=== PATIENT | female | born 1995 | race African-American/Black ===

== ENCOUNTER 2019-06-25 11:37 | Emergency (ER) | payer OTHER, SELFPAY ==
[2019-06-25 11:45] VITALS: BP 131/88; PULSE 80; RESP 18; TEMP 37.4; O2SAT 100
--- NOTE | 2019-06-25 11:45 | ED.DENTAL ---
HPI - Dental/Oral General Chief complaint: Dental/Oral Stated complaint: tooth pain History of Present Illness HPI Narrative: This is a 24-year-old female that comes in with left lower jaw pain from her tooth as well as jaw swelling. Patient states that she is already seen somebody in urgent care a week or so ago that was and was only given ibuprofen patient says that her dentist is not open due to couvid 19. Patient states that she has a 4-month-old baby so she has not been able to take anything too strong says that she cannot take it patient currently tearful due to pain. Patient last time she took something was at 4 AM which was Tylenol and ibuprofen at the same time Related Data Allergies Allergy/AdvReac Type Severity Reaction Status Date / Time peanuts Allergy Unknown Swelling Uncoded 03/16/19 18:46 of Lip/Tongue/Throat seafood Allergy Unknown Swelling Uncoded 03/16/19 18:46 of Lip/Tongue/Throat Review of Systems Review of Systems: Narrative: CONSTITUTIONAL: Denies fever, chills, or sweats. EYES: Denies visual changes, redness, or discharge. ENT: Denies rhinorrhea, congestion, sore throat, or positive otalgia. Tooth pain CARDIOVASCULAR:Denies chest pain, palpitations, or edema. RESPIRATORY: Denies cough or dyspnea. GASTROINTESTINAL: Denies abdominal pain, nausea, vomiting, or diarrhea. GENITOURINARY: Denies dysuria or hematuria. SKIN:[Denies rash or itching. MUSCULOSKELETAL:Denies back pain, joint pain, or myalgia. NEUROLOGIC: Denies headache, numbness, or weakness. PSYCHIATRIC:Denies anxiety or depression PMFSH Social History Social History Smoking status: Never smoker Gender identity (if verbalized by the patient): Female Comments At time as signature, I have reviewed and agree with nursing past medical, social, surgical and family history. Please see nursing chart for further information. There is no relevant family history pertinent to the presenting complaint. Exam Narrative: Exam Narrative: GENERAL:Well-appearing, well-nourished, and in no acute distress. HEAD:Normocephalic, atraumatic. EYES: PERRLA and EOMI. ENT: Nares clear, no rhinorrhea or epistaxis. Mucous membranes moist. Jaw swelling lower left swelling gumline ear pain due to the jaw pain NECK: Supple. CHEST: Clear to auscultation. No respiratory distress. HEART: Regular rate and rhythm. No murmur heard. Normal peripheral pulses. ABDOMEN: Soft, nontender, nondistended, normal active bowel sounds. EXTREMITIES: Normal range of motion. No edema. SKIN: Warm, dry, no rash. NEURO: No focal deficits. Alert and oriented x3. Course Vital Signs Vital signs: Vital Signs Temperature 99.4 F 06/25/19 11:45 Pulse Rate 80 06/25/19 11:45 Respiratory Rate 18 06/25/19 11:45 Blood Pressure 131/88 06/25/19 11:45 Pulse Oximetry 100 06/25/19 11:45 Temperature 99.4 F 06/25/19 11:45 Pulse Rate 80 06/25/19 11:45 Respiratory Rate 18 06/25/19 11:45 Blood Pressure 131/88 06/25/19 11:45 Pulse Oximetry 100 06/25/19 11:45 MDM - Dental/Oral Differential Diagnosis Differential diagnosis: Likely gingival abscess, dental caries, toothache, dental abscess and fracture of tooth Discharge Plan Discharge Clinical Impression: Dental caries, Toothache, Dental abscess Patient Disposition: Home, Self-Care Condition: Stable Instructions: Antibiotic Form, Dental Abscess (ED), Acute Dental Trauma (ED), Mouth Care (ED) Additional Instructions: Antibiotic as directed Avoid temperature extremes May apply heat or ice to the face Gentle brushing and flossing Alternate tylenol and ibuprofen as needed for pain Follow-up with the dentist as soon as possible--see the list provided If your pharmacy is not able to mix the magic mouth wash I want you to mix 40 ml of benadryl 40 ml of Milk of Mag with the lidocaine shake it up and then you will draw 5 mls
[2019-06-25] MEDS: predniSONE 20 MG TABLET 40 MG PO (11:56)
== END 2019-06-25 12:10 | disposition home or self-care (01) ==
PROVIDERS: Emergency Provider Nurse Practitioner Family
DX: K02.9 Dental caries, unspecified (principal); K04.7 Periapical abscess without sinus; J45.909 Unspecified asthma, uncomplicated
CPT/HCPCS: 99213; G0463; J7512

== ENCOUNTER 2019-11-21 18:05 | Emergency (ER) | payer OTHER, SELFPAY ==
[2019-11-21 18:14] VITALS: BP 146/93; PULSE 83; RESP 20; TEMP 36.8; O2SAT 100
--- NOTE | 2019-11-21 18:33 | ED.ABDPAIN ---
HPI - Abdominal Pain General Chief Complaint: Urogenital-Female Stated Complaint: abd pain/cramps/rash on face Time Seen by Provider: 11/21/19 18:08 Source: patient Limitations: no limitations History of Present Illness HPI narrative: Patient presents for evaluation of abnormal uterine bleeding. Indicates she had a vaginal delivery in February 2019. She had a Nexplanon placed in her left upper extremity following the delivery, which is still in place. She resumed a pattern of normal menstruation in June of this year. She indicates she had a period starting on October 04 that lasted through the end of the month. On Wednesday of last week(four days ago), she began experiencing vaginal bleeding again. She has been going through approximately 4 pads per day. She states there are some blood clots present. She denies any fever, chills, nausea, vomiting, vaginal discharge, urinary symptoms. No history of abdominal surgeries. No EtOH use. OBGYN is Stephanie Mendoza in [facility]. She has some pelvic cramping that is consistent with menstrual cramps. In terms of her obstetric history, she is G1, P1. No additional complaints or concerns. Related Data Allergies Allergy/AdvReac Type Severity Reaction Status Date / Time peanuts Allergy Unknown Swelling Uncoded 03/16/19 18:46 of Lip/Tongue/Throat seafood Allergy Unknown Swelling Uncoded 03/16/19 18:46 of Lip/Tongue/Throat Review of Systems Review of Systems: Narrative: CONSTITUTIONAL: Denies fever, chills, or sweats. EYES: Denies visual changes, redness, or discharge. ENT: Denies rhinorrhea, congestion, sore throat, or otalgia. CARDIOVASCULAR: Denies chest pain, palpitations, or edema. RESPIRATORY: Denies cough or dyspnea. GASTROINTESTINAL: Denies nausea, vomiting, or diarrhea. Reports some pelvic cramping GENITOURINARY: Denies dysuria or hematuria. Reports vaginal bleeding SKIN: Denies rash or itching. MUSCULOSKELETAL: Denies back pain, joint pain, or myalgia. NEUROLOGIC: Denies headache, numbness, dizziness, or weakness. PSYCHIATRIC: Denies anxiety or depression. 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 HEAD: Normocephalic, atraumatic. EYES: PERRLA and EOMI. ENT: Nares clear, no rhinorrhea or epistaxis. Mucous membranes moist. Oropharynx without tonsillar hypertrophy exudate or other lesions. Bilateral TMs pearly [place] nonbulging NECK: Supple. No adenopathy or masses. No carotid bruits or JVD CHEST: Clear to auscultation. No respiratory distress. No wheezes rales or rhonchi HEART: Regular rate and rhythm. No murmur heard. Normal peripheral pulses. ABDOMEN: Soft, nondistended, normal active bowel sounds. Mild tenderness in LLQ Without rebound or guarding eXTREMITIES: Normal range of motion. No edema. SKIN: Warm, dry, no rash. NEURO: No focal deficits. Alert and oriented x3. PSYCH: Normal mood and affect. Course Course Emergency Course: This is a 24-year-old female that came to the [facility] care with complaints of abnormal uterine bleeding. Her urine is negative. She does have some protein in her urine and some blood as well. She does have a history of hypertension and preeclampsia. She looks extremely well on examination. She likely could benefit from ultrasound but this does not need to
== END 2019-11-21 18:58 | disposition home or self-care (01) ==
PROVIDERS: Emergency Provider Nurse Practitioner
DX: N93.9 Abnormal uterine and vaginal bleeding, unspecified (principal); R80.9 Proteinuria, unspecified; I10 Essential (primary) hypertension; F17.200 Nicotine dependence, unspecified, uncomplicated
CPT/HCPCS: 81003; 81025; 99213; G0463

== ENCOUNTER 2020-01-09 18:07 | Emergency (ER) | payer OTHER, SELFPAY ==
[2020-01-09 18:18] VITALS: BP 141/102; PULSE 89; RESP 20; TEMP 37.9; O2SAT 100
--- NOTE | 2020-01-09 18:32 | ED.URI ---
HPI - URI/Sore Throat General Chief Complaint: Upper Respiratory Infection Stated Complaint: upper respiratory infection Time Seen by Provider: 01/09/20 18:18 Source: patient and RN notes reviewed Mode of arrival: ambulatory Limitations: no limitations History of Present Illness HPI Narrative: Patient presents today complaining of sinus pressure, body aches, rhinorrhea, nasal congestion since yesterday. Denies sore throat, cough, fever, ear pain. She has been taking Tylenol and TheraFlu without relief. Daughter has a cold at home. No known COVID-19 exposure. MD elicited complaint: nasal congestion Related Data Home Medications Medication Instructions Recorded Confirmed epinephrine 0.3 mg SUBCUT 01/09/20 Allergies Allergy/AdvReac Type Severity Reaction Status Date / Time peanuts Allergy Unknown Swelling Uncoded 03/16/19 18:46 of Lip/Tongue/Throat seafood Allergy Unknown Swelling Uncoded 03/16/19 18:46 of Lip/Tongue/Throat Review of Systems Review of Systems: Narrative: CONSTITUTIONAL: Denies fever, chills, or sweats. + Body aches EYES: Denies visual changes, redness, or discharge. ENT: Denies sore throat, or otalgia. + Congestion, rhinorrhea, facial pressure CARDIOVASCULAR: Denies chest pain, palpitations, or edema. RESPIRATORY: Denies cough or dyspnea. GASTROINTESTINAL: Denies abdominal pain, nausea, vomiting, or diarrhea. GENITOURINARY: Denies dysuria or hematuria. SKIN: Denies rash, itching, or wounds. MUSCULOSKELETAL: Denies back pain, joint pain, or myalgia. NEUROLOGIC: Denies headache, numbness, tingling, or weakness. PSYCH: Denies depression or anxiety. 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 Please see nursing chart for further information. There is no relevant family history pertinent to the presenting complaint Exam Narrative: Exam Narrative: GENERAL: Well-appearing, well-nourished, and in no acute distress. HEAD: Normocephalic, atraumatic. EYES: EOMI. No redness or drainage. Conjunctivae normal. ENT: Mucous membranes pink and moist. Nares congested. Erythematous and bilateral swollen nasal turbinates with rhinorrhea. TMs normal bilaterally. Throat normal. Uvula midline. NECK: Normal AROM. Supple. No lymphadenopathy. CHEST: No respiratory distress. Clear to auscultation. HEART: Regular rate and rhythm. No murmur appreciated. Normal peripheral pulses. EXTREMITIES: Normal range of motion. No edema. SKIN: Warm, dry, no rash. Capillary refill normal. Normal skin turgor. NEURO: No focal deficits. Alert and oriented x3. Gait steady. PSYCH: Normal affect. No signs of depression or anxiety. Course Vital Signs Vital signs: Vital Signs Temperature 100.3 F H 01/09/20 18:18 Pulse Rate 89 01/09/20 18:18 Respiratory Rate 20 01/09/20 18:18 Blood Pressure 141/102 H 01/09/20 18:18 Pulse Oximetry 100 01/09/20 18:18 Temperature 100.3 F H 01/09/20 18:18 Pulse Rate 89 01/09/20 18:18 Respiratory Rate 20 01/09/20 18:18 Blood Pressure 141/102 H 01/09/20 18:18 Pulse Oximetry 100 01/09/20 18:18 Reviewed. Pt has been instructed to follow up with her PCP regarding her elevated blood pressure today. MDM - URI/Sore Throat Differential Diag
[2020-01-09 18:38] VITALS: BP 140/74
== END 2020-01-09 18:37 | disposition home or self-care (01) ==
PROVIDERS: Emergency Provider Nurse Practitioner
DX: J06.9 Acute upper respiratory infection, unspecified (principal); F17.200 Nicotine dependence, unspecified, uncomplicated
CPT/HCPCS: 99213; G0463

== ENCOUNTER 2020-03-17 08:46 | Emergency (ER) | payer OTHER, SELFPAY ==
--- NOTE | 2020-03-19 16:40 | ED.FEMALEGU ---
HPI - Female Genitourinary General Stated complaint: boil Time Seen by Provider: 03/17/20 17:25 Source: patient Mode of arrival: ambulatory Limitations: no limitations History of Present Illness HPI Narrative: Bertha Craven is a 24 yo female with no PMH who comes to the [facility] care with a painful lesion to right labia. Patient shaves and states that in the last 2 days it is gotten tender and hard; tried to get it to drain by sitting in a hot tub and has now done that; Patient has no medical history; denies nausea vomiting, fever Related Data Home Medications Medication Instructions Recorded Confirmed epinephrine 0.3 mg SUBCUT 01/09/20 Allergies Allergy/AdvReac Type Severity Reaction Status Date / Time peanuts Allergy Unknown Swelling Uncoded 03/16/19 18:46 of Lip/Tongue/Throat seafood Allergy Unknown Swelling Uncoded 03/16/19 18:46 of Lip/Tongue/Throat Review of Systems Review of Systems: Narrative: CONSTITUTIONAL: Denies fever, chills, sweats. EYES: Denies visual changes, redness, discharge. ENT: Denies rhinorrhea, congestion, sore throat, otalgia. CARDIOVASCULAR: Denies chest pain, palpitations, edema. RESPIRATORY: Denies dyspnea, wheezing, cough GASTROINTESTINAL: Denies abdominal pain, nausea, vomiting, diarrhea. GENITOURINARY: Denies dysuria, hematuria, abnormal discharge SKIN: Denies rash or itching. Painful lesion to right labia NEUROLOGIC: Denies numbness, or focal weakness. PSYCHIATRIC: Denies anxiety or depression. PMFSH Past Medical History Medical History Preeclampsia Surgical History Surgical History No pertinent past surgical history Family History Family History Mother Hypertension Grandparent Diabetes mellitus Social History Social History Smoking status: Current every day smoker Smokeless tobacco user: other Gender identity (if verbalized by the patient): Female Comments At time of signature, I agree with nursing past medical, surgical, social and family history. There is no relevant family history pertinent to the presenting complaint. Exam Narrative: Exam Narrative: GENERAL: This is a well-nourished, well-developed patient, in mild distress. HEAD: normocephalic, atraumatic. EYES:Sclera clear/white. Vision is grossly intact. EARS: External ears normal, . Hearing grossly intact. NOSE: External nose normal without nasal discharge, nares without redness, no rhinorrhea. THROAT: Mucous membranes moist, NECK: Neck supple, CARDIOVASCULAR: Regular rate and rhythm without murmurs, gallops, or rubs. RESPIRATORY: Clear to auscultation. Breath sounds equal bilaterally. No wheezes, rales, or rhonchi. GASTROINTESTINAL: Abdomen soft, non-tender, SKIN: warm, intact with small pimple to lower R labia- tenderness across top of labia NEURO: awake, alert, and oriented to person, place and time. There were no obvious focal neurologic abnormalities. Steady gait EXTREMITIES: Normal range of motion. BACK: Nontender without deformity Course Course Emergency Course: [facility] I and D of right labia; started on Bactrim and Keflex and given directions in terms of warm soaks and had bath to encourage drainage Procedures Abscess I/D labia: Date of Incision: 03/20/20 Time of Incision: 16:07 Side (if applicable): right Technique: needle aspiration Amount of fluid expressed (mL): 1 Irrigation: Yes Packing used?: none I&D Results: Pus and Blood Abcess I&D Additional Comments: Started on antibiotics MDM - Female Genitourinary Differential Diagnosis Differential diagnosis: Likely other (Bartholin cyst versus labial cyst versus cellulitis) Discharg
== END 2020-03-17 17:38 | disposition home or self-care (01) ==
LOC: EXPTROY 03-20 15:05
PROVIDERS: Emergency Provider Nurse Practitioner
DX: N76.4 Abscess of vulva (principal)
CPT/HCPCS: 10160; 99213; G0463

== ENCOUNTER 2020-04-24 17:33 | Emergency (ER) | payer OTHER, SELFPAY ==
[2020-04-24 17:42] VITALS: BP 127/83; PULSE 54; RESP 20; TEMP 37.1; O2SAT 100
--- NOTE | 2020-04-24 17:57 | ED.FEMALEGU ---
HPI - Female Genitourinary General Chief complaint: Urogenital-Female Stated complaint: abd pain Time Seen by Provider: 04/24/20 17:42 Source: patient Mode of arrival: ambulatory Limitations: no limitations History of Present Illness HPI Narrative: Patient presents today complaining of a 2-day history of heavy menstrual bleeding. States her normal menstrual bleeding is not usually this heavy. Patient also states her menstrual cramps are worse than normal. States she is changing her pad every 2 hours, but it is not near fully saturated when she changes it. She denies any urinary symptoms to include dysuria, frequency, urgency. Denies fever, dizziness, lightheadedness, vision changes, nausea, vomiting, diarrhea. She has a Nexplanon in her left arm. States she called her medical provider and was told to come to urgent care today. She rates her cramping 8/10 and reports it is intermittent and describes it as uncomfortable. She has tried Tylenol without relief, as well as Pepto-Bismol as she believes some of her discomfort may have been gas. Related Data Home Medications Medication Instructions Recorded Confirmed epinephrine 0.3 mg SUBCUT PRN PRN 01/09/20 Allergies Allergy/AdvReac Type Severity Reaction Status Date / Time peanuts Allergy Unknown Swelling Uncoded 03/16/19 18:46 of Lip/Tongue/Throat seafood Allergy Unknown Swelling Uncoded 03/16/19 18:46 of Lip/Tongue/Throat Review of Systems Review of Systems: Narrative: CONSTITUTIONAL: Denies body aches, fever, chills, or sweats. EYES: Denies visual changes, redness, or discharge. ENT: Denies rhinorrhea, congestion, sore throat, or otalgia. CARDIOVASCULAR: Denies chest pain, palpitations, or edema. RESPIRATORY: Denies cough or dyspnea. GASTROINTESTINAL: Denies nausea, vomiting, or diarrhea. + Lower abdominal cramping GENITOURINARY: Denies dysuria or hematuria.+ Vaginal bleeding SKIN: Denies rash, itching, or wounds. MUSCULOSKELETAL: Denies back pain, joint pain, or myalgia. NEUROLOGIC: Denies headache, numbness, tingling, or weakness. PSYCH: Denies depression or anxiety. [facility] Past Medical History Medical History Preeclampsia Surgical History Surgical History No pertinent past surgical history Family History Family History Mother Hypertension Grandparent Diabetes mellitus Social History Social History Smoking status: Current every day smoker Smokeless tobacco user: other Gender identity (if verbalized by the patient): Female Comments At time of signature, I have reviewed and agree with nursing past medical, surgical, social and family history unless otherwise noted. Please see nursing chart for further information. There is no relevant family history pertinent to the presenting complaint Exam Narrative: Exam Narrative: GENERAL: Well-appearing, well-nourished, and in no acute distress. HEAD: Normocephalic, atraumatic. EYES: EOMI. No redness or drainage. Conjunctivae normal. ENT: Mucous membranes pink and moist. NECK: Normal AROM. CHEST: No respiratory distress. Clear to auscultation. HEART: Regular rate and rhythm. No murmur appreciated. Normal peripheral pulses. ABDOMEN: Soft, nondistended, normal active bowel sounds. Mildly tender to the suprapubic area, without rebound or guarding. EXTREMITIES: Normal range of motion. No edema. SKIN: Warm, dry, no rash. Capillary refill normal. Normal skin turgor. NEURO: No focal deficits. Alert and oriented x3. Gait steady. PSYCH: Normal affect. No signs of depression or anxiety. Course Vital Signs Vital signs: Vital Signs Temperature 98.8 F 04/24/20 17:42 Pulse Rate 54 L 04/24/20 17:42 Respiratory Rate 20 04/24/20 17:42 Blood Pressure 127/8
== END 2020-04-24 18:18 | disposition home or self-care (01) ==
PROVIDERS: Emergency Provider Nurse Practitioner
DX: N94.6 Dysmenorrhea, unspecified (principal); F17.200 Nicotine dependence, unspecified, uncomplicated
CPT/HCPCS: 81003; 81025; 99213; G0463

== ENCOUNTER 2020-10-14 18:41 | Emergency (ER) | payer OTHER, SELFPAY ==
[2020-10-14 18:50] VITALS: BP 121/76; PULSE 80; RESP 18; TEMP 37.3; O2SAT 100
--- NOTE | 2020-10-14 18:59 | ED.GENADULT ---
HPI - General Adult General Chief complaint: Upper Respiratory Infection Stated complaint: upper respiratory infection Time Seen by Provider: 10/14/20 18:58 Source: patient and RN notes reviewed Mode of arrival: ambulatory Limitations: no limitations History of Present Illness HPI narrative: 25-year-old -[place]i female presents with complaints of upper respiratory infection, sneezing, some facial congestion, facial pressure, fever, and body aches for the past 3 days. Bertha reports a NEGATIVE COVID-19 today at [facility] and constant symptoms with treatment. Tylenol and Mucinex with little relief. ?No facial swelling.? Cough without chest congestion. ?Nasal congestion and rhinorrhea. No sore throat. Fevers as high as 100.2F, temporal without chills and sweats. No drooling, neck or throat swelling. No voice change. No nausea, vomiting, or abdominal pain. Tolerating liquids well. ?Denies chills, dyspnea, difficulty swallowing, jaw pain, dental pain, foreign body sensation, and rash. ?No chest pain or shortness of breath. LMP unknown due to Nexplanon in place. Remains active. The patient reports she has not been diagnosed with COVID-19. The patient reports she received 2 Moderna COVID-19 vaccines. The patient reports she is not waiting for the results of a COVID-19 lab test. The patient reports she does not have weakness, fatigue, or myalgia. The patient reports he does not have any loss of taste or smell and diarrhea. Denies recent traveling. Denies concerns for COVID-19 or exposures. At this time, the patient is not suspected of having COVID-19. ? ? Some parts of this dictation were generated by voice recognition software and may contain typographical and/or grammatical inaccuracies. Related Data Home Medications Medication Instructions Recorded Confirmed epinephrine 0.3 mg SUBCUT PRN PRN 01/09/20 10/14/20 etonogestrel [Nexplanon] See Rx Instructions .ROUTE .COMPLEX 10/14/20 10/14/20 Allergies Allergy/AdvReac Type Severity Reaction Status Date / Time peanuts Allergy Severe Swelling Uncoded 10/14/20 18:59 of Lip/Tongue/Throat seafood Allergy Intermediate Hives Uncoded 10/14/20 18:59 Review of Systems Review of Systems: Narrative: CONSTITUTIONAL: Denies chills, sweats. Complains of low-grade fever. EYES: Denies visual changes, redness, discharge. ENT: Complains of rhinorrhea, congestion, facial congestion and pressure. Denies sore throat, otalgia. CARDIOVASCULAR: Denies chest pain, palpitations, edema. RESPIRATORY: Denies dyspnea, wheezing. Complaints of cough. GASTROINTESTINAL: Denies abdominal pain, nausea, vomiting, diarrhea. GENITOURINARY: Denies dysuria, hematuria, abnormal discharge SKIN: Denies rash or itching. MUSCULOSKELETAL: Denies acute back pain, joint pain, or myalgia. NEUROLOGIC: Denies numbness or focal weakness. PSYCHIATRIC: Denies anxiety or depression. All other systems reviewed & are unremarkable except as noted in HPI and below. [facility] Past Medical History Medical History (Updated 10/15/20 @ 00:01 by Regulo Wheeler) Asthma Gestational diabetes Preeclampsia Vaginal delivery X1 girl Surgical History Surgical History No pertinent past surgical history Family History Family History (Updated 10/14/20 @ 19:15 by ORESTES Wilson) Mother Hypertension Grandparent Diabetes mellitus Father Unknown family medical history Social History Social History (Updated 10/14/20 @ 19:15 by ORESTES Wilson) Smoking status: Never smoker Tobacco type: cigarettes Second hand tobacco smoke exposure: No Alcohol intake: never Substance use: never Substance use type: does not use Living arrangements: with family Occupation/Education: unemployed Gender identity (if verbalized by the patient): Female Sexual Orientation (if Verbalized by the Patient): Straight or Heterosexual Comments At t
== END 2020-10-14 19:32 | disposition home or self-care (01) ==
PROVIDERS: Emergency Provider Nurse Practitioner Family
DX: J01.90 Acute sinusitis, unspecified (principal); J45.909 Unspecified asthma, uncomplicated
CPT/HCPCS: 99213; G0463

== ENCOUNTER 2021-03-15 13:08 | Emergency (ER) | payer OTHER, MEDICAID, SELFPAY ==
[2021-03-15 13:20] VITALS: BP 128/92; PULSE 80; RESP 18; TEMP 37; O2SAT 100
--- NOTE | 2021-03-15 13:54 | ED.EAR ---
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 No wheezing but slightly better with nebulizer-she is using more frequently,[ and so wants refill]. No loss of taste/smell, CP, vomiting/diarrhea, S OB-she was Covid tested with a rapid negative test a couple days ago. Symptoms are mild, slightly worse sleeping/supine. Vital signs are good; blood pressure 120s / 92. The patient has been informed that they may have pre-hypertension or Hypertension based on a BP reading in the department. I recommend that the patient call the primary care provider listed on their discharge instructions or a physician of their choice this week to arrange follow up for further evaluation of possible pre-hypertension or Hypertension Related Data Home Medications Medication Instructions Recorded Confirmed epinephrine 0.3 mg SUBCUT PRN PRN 01/09/20 03/15/21 etonogestrel [Nexplanon] See Rx Instructions .ROUTE .COMPLEX 10/14/20 03/15/21 Allergies Allergy/AdvReac Type Severity Reaction Status Date / Time peanuts Allergy Severe Swelling Uncoded 03/15/21 13:11 of Lip/Tongue/Throat seafood Allergy Intermediate Hives Uncoded 03/15/21 13:11 Review of Systems Review of Systems: General/Constitutional: No weight loss, REPORTS fever Eyes: N0: Redness,discharge Ears/Nose/Throat: No: Epistaxis,ear discharge Respiratory: Denies: Hemoptysis Gastrointestinal: No Vomiting, Bleeding-rectal Skin: No Lumps, eruption Neurologic: No Focal Weakness,Sz Hematologic: Denies: Petechiae/Purpura Psychiatric: No: Suicida ideationl All Other Systems: Reviewed and Negative [facility] Past Medical History Medical History (Updated 03/15/21 @ 13:57 by Jose Oconnro MD) Asthma Gestational diabetes Preeclampsia Vaginal delivery X1 girl Surgical History Surgical History No pertinent past surgical history Family History Family History (Updated 10/14/20 @ 19:15 by ORESTES Wilson) Mother Hypertension Grandparent Diabetes mellitus Father Unknown family medical history Social History Social History (Updated 10/14/20 @ 19:15 by ORESTES Wilson) Smoking status: Never smoker Tobacco type: cigarettes Second hand tobacco smoke exposure: No Alcohol intake: never Substance use: never Substance use type: does not use Gender identity (if verbalized by the patient): Female Sexual Orientation (if Verbalized by the Patient): Straight or Heterosexual Comments At time of signature, agree with nursing past medical, surgical, social and family history. There is no relevant family history pertinent to the presenting complaint Exam Narrative: General Appearance: Well appearing, Well nourished EYE: PERRLA, Conjunctiva clear Ears: Auditory canal normal, TM normal Nose: Rhinorrhea, Mucousal erythema Mouth/Throat: MM moist, Uvula midline, Pharyngeal erythema Neck: Supple, No adenopathy Respiratory: No respiratory distress, Breath sounds equal, Clear to auscultation Cardiovascular: RRR, No JVD Musculoskeletal: Non tender, Normal strength Skin: Warm, Dry Neurological: A&O x3, CN II-XII intact Psychiatric: Normal mood, Normal affect Course Vital Signs Vital signs: Vital Signs Temperature 98.6 F 03/15/21 13:20 Pulse Rate 80 03/15/21 13:20 Respiratory Rate 18 03/15/21 13:20 Blood Pressure 128/92 H 03/15/21 13:20 Pulse Oximetry 100 03/15/21 13:20 Temperature 98.6 F 03/15/21 13:20 Pulse Rate 80 03/15/21 13:20 Respiratory Rate 18 03/15/21 13:20 Blood Pressure 128/92 H 03/15/21
== END 2021-03-15 14:00 | disposition home or self-care (01) ==
PROVIDERS: Emergency Provider Emergency Medicine
DX: R51.9 Headache, unspecified (principal); Z20.822 Contact with and (suspected) exposure to COVID-19; J45.909 Unspecified asthma, uncomplicated
CPT/HCPCS: 87081; 87804; 87880; 99213; G0463

== ENCOUNTER → 2021-03-17 08:15 | Outpatient (CLI) | payer OTHER, MEDICAID, SELFPAY ==
[2021-03-19 19:45] LABS: SARS-CoV-2 RNA PCR Negative
== END ==
PROVIDERS: Visit Provider Emergency Medicine
DX: J31.0 Chronic rhinitis (principal); Z20.822 Contact with and (suspected) exposure to COVID-19
CPT/HCPCS: C9803; U0003; U0005

== ENCOUNTER 2021-07-14 17:20 | Emergency (ER) | payer OTHER, MEDICAID, SELFPAY ==
--- NOTE | 2021-07-14 17:36 | ED.URI ---
HPI - URI/Sore Throat General Chief Complaint: Upper Respiratory Infection Stated Complaint: sorethroat,bodyache Time Seen by Provider: 07/14/21 17:55 Source: patient and RN notes reviewed Mode of arrival: ambulatory Limitations: no limitations History of Present Illness HPI Narrative: 26-year-old female presents with concern for sore throat, body ache, headache that started yesterday. She reports taking ibuprofen without relief. She denies fever, body aches, chills, sweats, cough, shortness of breath, nausea, vomiting, diarrhea. She denies any known sick contacts. MD elicited complaint: cough and sore throat Related Data Home Medications Medication Instructions Recorded Confirmed No Home Medications 07/14/21 07/14/21 Allergies Allergy/AdvReac Type Severity Reaction Status Date / Time peanuts Allergy Severe Swelling Uncoded 07/14/21 18:08 of Lip/Tongue/Throat seafood Allergy Intermediate Hives Uncoded 07/14/21 18:08 Review of Systems Review of Systems: CONSTITUTIONAL: Denies malaise, chills, sweats, or fever. EYES: Denies visual changes, redness, or discharge. ENT: Reports rhinorrhea, congestion, sinus pain, and sore throat. CARDIOVASCULAR: Denies chest pain, palpitations, or edema. RESPIRATORY: Denies cough. Denies dyspnea. GASTROINTESTINAL: Denies abdominal pain, nausea, vomiting, diarrhea SKIN: Denies rash or itching. MUSCULOSKELETAL: Denies myalgia. NEUROLOGIC: Reports headache. All systems reviewed & are unremarkable except as noted in HPI and below PMFSH Past Medical History Medical History (Updated 07/14/21 @ 18:06 by Jacqueline Pagan NP) Asthma Gestational diabetes Preeclampsia Vaginal delivery X1 girl Surgical History Surgical History No pertinent past surgical history Family History Family History (Updated 10/14/20 @ 19:15 by ORESTES Wilson) Mother Hypertension Grandparent Diabetes mellitus Father Unknown family medical history Social History Social History (Updated 10/14/20 @ 19:15 by ORESTES Wilson) Smoking status: Never smoker Tobacco type: cigarettes Second hand tobacco smoke exposure: No Alcohol intake: never Substance use: never Substance use type: does not use Gender identity (if verbalized by the patient): Female Sexual Orientation (if Verbalized by the Patient): Straight or Heterosexual Comments At time of signature, agree with nursing past medical, surgical, social and family history. There is no relevant family history pertinent to the presenting complaint Exam Narrative: GENERAL: Well-appearing, well-nourished, and in no acute distress. HEAD: Normocephalic EYES: PERRLA, conjunctivae clear ENT: Nares clear, turbinates edematous and erythematous, clear discharge. Mucous membranes moist. TM pearly obregon with dull light reflex bilaterally; no tragal tenderness. Oropharynx not erythematous without lesions. Tonsils not enlarged and without exudate, no drooling, no hoarseness, no trismus, uvula midline. NECK: Supple. No lymphadenopathy CHEST: Clear to auscultation, breath sounds equal. No wheezing, rhonchi, rales, or stridor. No respiratory distress, speaks in full sentences. HEART: Regular rate and rhythm. No murmur heard. SKIN: Warm, dry, no rash. NEURO: Alert and oriented x3. PSYCH: Normal mood and affect Course Course Emergency Course: Patient is aware of diagnosis, understands and agrees to treatment plan. Anticipatory guidance given. Patient agrees to follow-up as directed and is aware of reasons to seek care at the emergency department. Portions of this record may have been created with voice recognition software Level of Care: Express Care Visit Vital Signs Vital signs: Vital Signs Temperature 98.1 F 07/14/21 17:59 Pulse Rate 94 07/14/21 17:59 Respiratory Rate 20 07/14/21 17:59 Blood Pressure 121/76 07/14/21 17:59 Pulse Oximetry 100
[2021-07-14 17:59] VITALS: BP 121/76; PULSE 94; RESP 20; TEMP 36.7; O2SAT 100
== END 2021-07-14 18:13 | disposition home or self-care (01) ==
PROVIDERS: Emergency Provider Nurse Practitioner
DX: J06.9 Acute upper respiratory infection, unspecified (principal); J45.909 Unspecified asthma, uncomplicated
CPT/HCPCS: 87081; 87804; 87880; 99213; G0463

== ENCOUNTER 2021-09-08 19:04 | Emergency (ER) | payer OTHER, MEDICAID, SELFPAY ==
--- NOTE | 2021-09-08 19:20 | ED.URI ---
HPI - URI/Sore Throat General Chief Complaint: Upper Respiratory Infection Stated Complaint: sorethroat,bilateral ear pain Time Seen by Provider: 09/08/21 19:30 Source: patient Mode of arrival: ambulatory Limitations: no limitations History of Present Illness HPI Narrative: Ms. Craven is a 26-year-old female patient presenting to the clinic today with complaints of sore throat and bilateral ear pain x2 days. She denies any fever or chills. She denies any known exposure to anyone with COVID, flu, or strep. MD elicited complaint: sore throat and other (Bilateral ear pain) Related Data Allergies Allergy/AdvReac Type Severity Reaction Status Date / Time peanuts Allergy Severe Swelling Uncoded 09/08/21 19:28 of Lip/Tongue/Throat seafood Allergy Intermediate Hives Uncoded 09/08/21 19:28 Review of Systems Review of Systems: Pertinent positives per HPI. Patient denies any fever, chills, rash, headache, visual changes, dizziness, cough, shortness of breath, chest pain, palpitations, nausea, vomiting, diarrhea, constipation, abdominal pain, or any urinary issues. PMFSH Past Medical History Medical History Asthma Gestational diabetes Preeclampsia Vaginal delivery X1 girl Surgical History Surgical History No pertinent past surgical history Family History Family History Mother Hypertension Grandparent Diabetes mellitus Father Unknown family medical history Social History Social History Smoking status: Never smoker Tobacco type: cigarettes Second hand tobacco smoke exposure: No Alcohol intake: never Substance use: never Substance use type: does not use Gender identity (if verbalized by the patient): Female Sexual Orientation (if Verbalized by the Patient): Straight or Heterosexual Comments At the time of my signature, I reviewed and agree with the nursing past medical, surgical, social, and family history. There is no relevant family history pertinent to the patient complaint. Exam Narrative: General: Well-developed, well nourished, in no apparent distress Head: Normocephalic, atraumatic Eyes: Pupils equally round and reactive to light bilaterally, EOM intact, sclera and conjunctive clear, no discharge, lids normal Ears: TMs intact and clear, ear canals clear, no drainage, grossly hearing normal. Nose: Nares patent, clear discharge, no inflammation, no sinus tenderness. Mouth: Oral pharynx without lesions or masses, good dentition, MMM. Tonsillar enlargement with white exudate Neck: Supple, trachea midline, positive enlargement of anterior cervical nodes, no thyroid masses or goiter palpable. Cardio: Regular rate and rhythm, s1 and s2 normal, no murmur appreciated. Resp: Clear to auscultation bilaterally, no rhonchi, rales, wheezing or rubs Course Course Emergency Course: Portions of this record may have been created with voice recognition software. Level of Care: Express Care Visit Vital Signs Vital signs: Vital Signs Temperature 36.6 C 09/08/21 19:28 Pulse Rate 77 09/08/21 19:28 Respiratory Rate 18 09/08/21 19:28 Blood Pressure 122/81 09/08/21 19:28 Pulse Oximetry 100 09/08/21 19:28 Oxygen Delivery Room Air 09/08/21 19:28 Temperature 36.6 C 09/08/21 19:28 Pulse Rate 77 09/08/21 19:28 Respiratory Rate 18 09/08/21 19:28 Blood Pressure 122/81 09/08/21 19:28 Pulse Oximetry 100 09/08/21 19:28 Oxygen Delivery Room Air 09/08/21 19:28 Vital signs reviewed MDM - URI/Sore Throat MDM Narrative Medical decision making narrative: At the time of visit patient is resting comfortably on the exam table. Strep screen was obtained and was positive for strep. Amoxicillin was sent to her pharmacy an
[2021-09-08 19:28] VITALS: BP 122/81; PULSE 77; RESP 18; TEMP 36.6; O2SAT 100
== END 2021-09-08 19:45 | disposition home or self-care (01) ==
PROVIDERS: Emergency Provider Nurse Practitioner Family
DX: J02.0 Streptococcal pharyngitis (principal); J45.909 Unspecified asthma, uncomplicated
CPT/HCPCS: 87880; 99213; G0463

== ENCOUNTER 2022-01-16 17:17 | Emergency (ER) | payer OTHER, MEDICAID, SELFPAY ==
--- NOTE | 2022-01-16 17:25 | ED.URI ---
HPI - URI/Sore Throat General Chief Complaint: Upper Respiratory Infection Stated Complaint: Sinus,Congestion,Sore Throat Source: patient and RN notes reviewed Mode of arrival: ambulatory Limitations: no limitations History of Present Illness HPI Narrative: 26 y/o female presented for c/o sinus congestion, sore throat and bilateral ear pain for 2 days. Also with hot/cold flashes. Taking Sudafed and Benadryl without relief in symptoms. Denies sob, chest pain, heart racing, n/v/d. Dtr with RSV and strep last week. MD elicited complaint: cough Related Data Allergies Allergy/AdvReac Type Severity Reaction Status Date / Time peanuts Allergy Severe Swelling Uncoded 09/08/21 19:28 of Lip/Tongue/Throat seafood Allergy Intermediate Hives Uncoded 09/08/21 19:28 Review of Systems Review of Systems: CONSTITUTIONAL: Endorses malaise, chills, sweats, fever EYES: Denies visual changes, redness, or discharge ENT: Reports rhinorrhea, congestion, sinus pain, otalgia, sore throat CARDIOVASCULAR: Denies chest pain, palpitations, edema RESPIRATORY: Reports cough, post nasal drainage. Denies dyspnea GASTROINTESTINAL: Denies abdominal pain, nausea, vomiting, diarrhea SKIN: Denies rash or itching MUSCULOSKELETAL: Endorses myalgia NEUROLOGIC: Denies headache PMFSH Past Medical History Medical History Asthma Gestational diabetes Preeclampsia Vaginal delivery X1 girl Surgical History Surgical History No pertinent past surgical history Family History Family History Mother Hypertension Grandparent Diabetes mellitus Father Unknown family medical history Social History Social History Smoking status: Never smoker Tobacco type: cigarettes Second hand tobacco smoke exposure: No Alcohol intake: never Substance use: never Substance use type: does not use Gender identity (if verbalized by the patient): Female Sexual Orientation (if Verbalized by the Patient): Straight or Heterosexual Exam Narrative: GENERAL: Ill-appearing, nontoxic EYES: PERRLA, conjunctivae clear ENT: Mucous membranes moist. TMs pearly [place] with dull light reflex bilaterally; no tragal tenderness. Oropharynx erythematous without lesions or exudate, no drooling, no hoarseness, no trismus, uvula midline. No tripod positioning, muffled voice, soft palate or pharyngeal wall bulging NECK: Supple. No lymphadenopathy CHEST: Clear to auscultation, breath sounds equal. HEART: Regular rate and rhythm. No murmur heard. SKIN: Warm, dry, no rash. PSYCH: Normal mood and affect Course Course Emergency Course: Patient is aware of diagnosis, understands and agrees to treatment plan. Anticipatory guidance given. Patient agrees to follow-up as directed and is aware of reasons to seek care at the emergency department. Portions of this record may have been created with voice recognition software Level of Care: Express Care Visit Vital Signs Vital signs: Vital Signs Temperature 99.7 F H 01/16/22 17:26 Pulse Rate 78 01/16/22 17:26 Respiratory Rate 18 01/16/22 17:26 Blood Pressure 135/97 H 01/16/22 17:26 Pulse Oximetry 100 01/16/22 17:26 Oxygen Delivery Room Air 01/16/22 17:26 Temperature 99.7 F H 01/16/22 17:26 Pulse Rate 78 01/16/22 17:26 Respiratory Rate 18 01/16/22 17:26 Blood Pressure 135/97 H 01/16/22 17:26 Pulse Oximetry 100 01/16/22 17:26 Oxygen Delivery Room Air 01/16/22 17:26 reviewed MDM - URI/Sore Throat MDM Narrative Medical decision making narrative: covid flu and strep negative. results reviewed with pt. Advised supportive measures and signs/symptoms to go to the ER. Pt is appropriate for outpt treatment and f/u. Differential Diagnosis Differential diagnosis: Mary Ann
[2022-01-16 17:26] VITALS: BP 135/97; PULSE 78; RESP 18; TEMP 37.6; O2SAT 100
== END 2022-01-16 18:07 | disposition home or self-care (01) ==
PROVIDERS: Emergency Provider Nurse Practitioner Family
DX: J02.0 Streptococcal pharyngitis (principal); Z20.822 Contact with and (suspected) exposure to COVID-19; J45.909 Unspecified asthma, uncomplicated
CPT/HCPCS: 87077; 87081; 87426; 87804; 87880; 99213; C9803; G0463

== ENCOUNTER 2022-05-27 12:10 | Emergency (ER) | payer OTHER, MEDICAID, SELFPAY ==
--- NOTE | 2022-05-27 12:14 | ED.URI ---
HPI - URI/Sore Throat General Chief Complaint: Upper Respiratory Infection Stated Complaint: Sinus Time Seen by Provider: 05/27/22 12:14 Source: patient Mode of arrival: ambulatory Limitations: no limitations History of Present Illness HPI Narrative: Ms. Craven is a 26-year-old female patient presenting to the clinic today with complaints of sinus congestion and headache times 3 days. She reports no known fever but has had some chills. She thinks she may have a sinus infection. Has been taking Claritin-D without relief MD elicited complaint: rhinorrhea, nasal congestion, sinus pain and other (Headache) Related Data Allergies Allergy/AdvReac Type Severity Reaction Status Date / Time peanuts Allergy Severe Swelling Uncoded 05/27/22 12:17 of Lip/Tongue/Throat seafood Allergy Intermediate Hives Uncoded 05/27/22 12:17 Review of Systems Review of Systems: Pertinent positives per HPI. Patient denies any fever, chills, rash, visual changes, dizziness, cough, shortness of breath, chest pain, palpitations, nausea, vomiting, diarrhea, constipation, abdominal pain, or any urinary issues. PMFSH Past Medical History Medical History Asthma Gestational diabetes Preeclampsia Vaginal delivery X1 girl Surgical History Surgical History No pertinent past surgical history Family History Family History Mother Hypertension Grandparent Diabetes mellitus Father Unknown family medical history Social History Social History Smoking status: Never smoker Tobacco type: cigarettes Second hand tobacco smoke exposure: No Alcohol intake: never Substance use: never Substance use type: does not use Living arrangements: with family Occupation/Education: unemployed Gender identity (if verbalized by the patient): Female Sexual Orientation (if Verbalized by the Patient): Straight or Heterosexual Comments At the time of my signature, I reviewed and agree with the nursing past medical, surgical, social, and family history. There is no relevant family history pertinent to the patient complaint. Exam Narrative: General: Well-developed, well nourished, in no apparent distress Head: Normocephalic, atraumatic Eyes: Pupils equally round and reactive to light bilaterally, EOM intact, sclera and conjunctive clear, no discharge, lids normal Ears: TMs intact and clear, ear canals clear, no drainage, grossly hearing normal. Nose: Nares patent, clear nasal discharge, severe inflammation to the right turbinates, mild inflammation to the left turbinates, right-sided ethmoid and maxillary sinus tenderness. Mouth: Oral pharynx without lesions or masses, good dentition, MMM. Postnasal drip Neck: Supple, trachea midline, no enlargement of anterior or posterior cervical nodes, no thyroid masses or goiter palpable. Cardio: Regular rate and rhythm, s1 and s2 normal, no murmur appreciated. Resp: Clear to auscultation bilaterally, no rhonchi, rales, wheezing or rubs Course Course Emergency Course: Portions of this record may have been created with voice recognition software. Level of Care: Express Care Visit Vital Signs Vital signs: Vital Signs Temperature 36.8 C 05/27/22 12:23 Pulse Rate 88 05/27/22 12:23 Respiratory Rate 16 05/27/22 12:23 Blood Pressure 120/74 05/27/22 12:23 Pulse Oximetry 100 05/27/22 12:23 Oxygen Delivery Room Air 05/27/22 12:23 Temperature 36.8 C 05/27/22 12:23 Pulse Rate 88 05/27/22 12:23 Respiratory Rate 16 05/27/22 12:23 Blood Pressure 120/74 05/27/22 12:23 Pulse Oximetry 100 05/27/22 12:23 Oxygen Delivery Room Air 05/27/22 12:23 Vital signs reviewed MDM - URI/Sore Throat MDM Narrative Medical decision
[2022-05-27 12:23] VITALS: BP 120/74; PULSE 88; RESP 16; TEMP 36.8; O2SAT 100
== END 2022-05-27 12:50 | disposition home or self-care (01) ==
PROVIDERS: Emergency Provider Nurse Practitioner Family
DX: U07.1 COVID-19 (principal); J45.909 Unspecified asthma, uncomplicated
CPT/HCPCS: 87426; 99213; C9803; G0463

== ENCOUNTER 2022-11-07 18:37 | Emergency (ER) | payer OTHER, MEDICAID, SELFPAY ==
[2022-11-07 18:46] VITALS: BP 123/87; PULSE 81; RESP 20; TEMP 36.2; O2SAT 100
--- NOTE | 2022-11-07 18:57 | ED.SKABFB ---
HPI - Skin/Abscess/Foreign Bdy General Chief complaint: Skin/Abscess/Foreign Body Stated complaint: Insect Bite Rt Forearm Time Seen by Provider: 11/07/22 18:51 Source: patient and RN notes reviewed Mode of arrival: ambulatory Limitations: no limitations History of Present Illness HPI narrative: Patient presents today complaining of right wrist itching, swelling, and burning sensation since this afternoon. Believes she may have been bitten by an insect. She has tried no interventions for symptoms prior to arrival. Related Data Allergies Allergy/AdvReac Type Severity Reaction Status Date / Time peanuts Allergy Severe Swelling Uncoded 11/07/22 18:41 of Lip/Tongue/Throat seafood AdvReac Intermediate Hives Uncoded 11/07/22 18:41 Review of Systems Review of Systems: CONSTITUTIONAL: Denies body aches, fever, chills, or sweats. EYES: Denies visual changes, redness, or discharge. ENT: Denies rhinorrhea, congestion, sore throat, or otalgia. CARDIOVASCULAR: Denies chest pain, palpitations, or edema. RESPIRATORY: Denies cough or dyspnea. GASTROINTESTINAL: Denies abdominal pain, nausea, vomiting, or diarrhea. GENITOURINARY: Denies dysuria or hematuria. SKIN: + itching and swelling to the right forearm MUSCULOSKELETAL: Denies back pain, joint pain, or myalgia. NEUROLOGIC: Denies headache, numbness, tingling, or weakness. PSYCH: Denies depression or anxiety. [facility] Past Medical History Medical History Asthma Gestational diabetes Preeclampsia Vaginal delivery X1 girl Surgical History Surgical History No pertinent past surgical history Family History Family History Mother Hypertension Grandparent Diabetes mellitus Father Unknown family medical history Social History Social History Smoking status: Never smoker Tobacco type: cigarettes Second hand tobacco smoke exposure: No Alcohol intake: never Substance use: never Substance use type: does not use Living arrangements: with family Occupation/Education: unemployed Gender identity (if verbalized by the patient): Female Sexual Orientation (if Verbalized by the Patient): Straight or Heterosexual Comments At time of signature, I have reviewed and agree with nursing past medical, surgical, social and family history unless otherwise noted. Please see nursing chart for further information. There is no relevant family history pertinent to the presenting complaint Exam Narrative: GENERAL: Well-appearing, well-nourished, and in no acute distress. HEAD: Normocephalic, atraumatic. EYES: EOMI. No redness or drainage. Conjunctivae normal. ENT: Mucous membranes pink and moist. NECK: Normal AROM. CHEST: No respiratory distress. EXTREMITIES: Normal range of motion. No edema. SKIN: Warm, dry. Capillary refill normal. Normal skin turgor. Mild erythema to the dorsum of right wrist with scant edema. Small puncture wound to the ulnar styloid process. No red streaking, induration, fluctuance. Distal sensation intact. Capillary refill normal. Radial pulse normal. Full range of motion of the wrist. NEURO: No focal deficits. Alert and oriented x3. Gait steady. PSYCH: Normal affect. No signs of depression or anxiety. Course Course Level of Care: Express Care Visit Vital Signs Vital signs: Vital Signs Temperature 97.2 F L 11/07/22 18:46 Pulse Rate 81 11/07/22 18:46 Respiratory Rate 20 11/07/22 18:46 Blood Pressure 123/87 11/07/22 18:46 Pulse Oximetry 100 11/07/22 18:46 Oxygen Delivery Room Air 11/07/22 18:46 Temperature 97.2 F L 11/07/22 18:46 Pulse Rate 81 11/07/22 18:46 Respiratory Rate 20 11/07/22 18:46 Blood Pressure 123/87 11/07/22 18:46 Pulse Oximet
== END 2022-11-07 19:00 | disposition home or self-care (01) ==
PROVIDERS: Emergency Provider Nurse Practitioner
DX: S50.861A Insect bite (nonvenomous) of right forearm, initial encounter (principal); W57.XXXA Bitten or stung by nonvenomous insect and other nonvenomous arthropods, initial encounter; J45.909 Unspecified asthma, uncomplicated
CPT/HCPCS: 99213; G0463

== ENCOUNTER 2022-12-17 11:00 | Emergency (ER) | payer OTHER, MEDICAID, SELFPAY ==
[2022-12-17 11:11] VITALS: BP 143/94; PULSE 91; RESP 16; TEMP 36.8; O2SAT 100
--- NOTE | 2022-12-17 11:42 | ED.HA ---
HPI - Headache General Chief Complaint: Headache Stated Complaint: Facial Pain Time Seen by Provider: 12/17/22 11:35 Source: patient, RN notes reviewed and old records reviewed Mode of arrival: ambulatory Limitations: no limitations History of Present Illness HPI Narrative: 27 year old female presents to [facility] care with complaints of headache discomfort sinus pressure for the past 2 days and has been taking Tylenol and Ibuprofen for her symptoms. Patient reports history of sinus problems and asthma denies any migraine history.Patient reports pain behind her ears and her right eye has been twitching, neuro status intact.Patient denies any dizziness, feelings of facial numbness or any nausea or vomiting, does report some body aches. MD elicited complaint: headache and other (sinus pressure) Pertinent past history: other (asthma and sinus problems) Onset (ago): day(s) (2) Pain scale (0-10): 8 Treatments prior to arrival: acetaminophen and ibuprofen Related Data Home Medications Medication Instructions Recorded Confirmed etonogestrel 68 mg subdermal 1 implant subdermal ONCE 12/17/22 12/17/22 implant (Nexplanon) Allergies Allergy/AdvReac Type Severity Reaction Status Date / Time peanuts Allergy Severe Swelling Uncoded 12/17/22 11:18 of Lip/Tongue/Throat seafood AdvReac Intermediate Hives Uncoded 12/17/22 11:18 Review of Systems Review of Systems: CONSTITUTIONAL: Denies fever, chills, or sweats. EYES: Denies visual changes, redness, or discharge.states some right eye twitching, denies any visual changes ENT: Reports some rhinorrhea, congestion, no sore throat, or otalgia. CARDIOVASCULAR: Denies chest pain, palpitations, or edema. RESPIRATORY: Denies cough or dyspnea. GASTROINTESTINAL: Denies abdominal pain, nausea, vomiting, or diarrhea. GENITOURINARY: Denies dysuria or hematuria. SKIN: Denies rash or itching. MUSCULOSKELETAL: Denies back pain, joint pain,reports some body aches NEUROLOGIC: Reports headache,no numbness, or weakness. PSYCHIATRIC: Denies anxiety or depression. All systems reviewed & are unremarkable except as noted in HPI and below PMFSH Past Medical History Medical History Asthma Gestational diabetes Preeclampsia Vaginal delivery X1 girl Surgical History Surgical History No pertinent past surgical history Family History Family History Mother Hypertension Grandparent Diabetes mellitus Father Unknown family medical history Social History Social History Smoking status: Never smoker Tobacco type: cigarettes Second hand tobacco smoke exposure: No Alcohol intake: never Substance use: never Substance use type: does not use Living arrangements: with family Occupation/Education: unemployed Gender identity (if verbalized by the patient): Female Sexual Orientation (if Verbalized by the Patient): Straight or Heterosexual Comments At time of signature, agree with nursing past medical, surgical, social and family history. There is no relevant family history pertinent to the presenting complaint Exam Narrative: GENERAL: Well-appearing, well-nourished, and in no acute distress. HEAD: Normocephalic, atraumatic. EYES: PERRLA and EOMI. ENT: Nares clear, clear rhinorrhea no epistaxis. Mucous membranes moist.TM's normal, throat pink with no swelling pos nasal discharge noted. NECK: Supple. no lymphadenopathy CHEST: Clear to auscultation. No respiratory distress.no cough noted SAO2 100% on room air HEART: Regular rate and rhythm. No murmur heard. Normal peripheral pulses. ABDOMEN: Soft, nontender, nondistended, normal active bowel sounds. EXTREMITIES: Normal range of motion. No edema. SKIN: Warm, dry, no rash. NEURO: No focal deficits. Alert and sherwin
== END 2022-12-17 12:02 | disposition home or self-care (01) ==
PROVIDERS: Emergency Provider Registered Nurse
DX: J32.9 Chronic sinusitis, unspecified (principal); R51.9 Headache, unspecified; Z20.822 Contact with and (suspected) exposure to COVID-19
CPT/HCPCS: 87426; 99213; C9803; G0463